=== PATIENT | female | born 1935 | race Asian ===

== ENCOUNTER 2017-08-25 09:02 | Emergency (ER) | payer SELFPAY ==
[~2017-08-25] VITALS: Ht 157.5 cm; Wt 41.0 kg
[2017-08-25] MEDS ORDERED: TETANUS, DIPHTHERIA, PERTUSSIS VAC/PF 0.5ML (>7YR OLD) IM ONE (09:30)
[2017-08-25] MEDS ORDERED: BACITRACIN ZINC OINT UDPKT TOP ONE (11:00)
[2017-08-25 11:03] VITALS: BP 132/72
== END 2017-08-25 11:15 | disposition home or self-care (01) ==
LOC: ER 10:12
DX: L03.011 Cellulitis of right finger (principal)
CPT/HCPCS: 73130; 82962; 90471; 90715; 99284; A4217; Z7610